=== PATIENT | male | born 1960 | race Caucasian/White ===

== ENCOUNTER 2017-07-26 16:44 | Emergency (ER) | payer MEDICAID ==
--- NOTE | 2017-07-26 18:44 | ED Physician Documentation ---
PD HPI BACK INJURY - Stated complaint Stated Complaint: SOA/ABD PX - History obtained from History obtained from: Patient - History of Present Illness Location: Right Type of injury: Other (just had a sneeze and felt onset of pain right lateral ribs. Hurting sharply. Not improved with Aleve. Had similar a few months ago on left side. Has had some upper thoracic pain recently too. Feeling that he is having pains diffusely the past 5-6 months. He thought it was just "getting old ".). No: Fall, Twist Where injury occurred: Home Timing - onset: How many days ago (current right ribs pain for few days, but has had diffuse pains for several months.) Timing - duration: Days Timing - details: Abrupt onset, Still present Quality: Pain Worsened by: Moving, Palpating, Other (deep breathing.) Associated symptoms: No: Fever, Weakness, Numbness Similar symptoms before: No diagnosis (has had some varied ribs pains in the recent past, thought he had just "thrown rib out of place".) Recently seen: Not recently seen (has not been to a medical provider for about 10 years.) Review of Systems Constitutional: denies: Fever, Chills Nose: denies: Rhinorrhea / runny nose, Congestion Throat: denies: Sore throat Cardiac: denies: Palpitations Respiratory: denies: Dyspnea, Cough, Wheezing GI: denies: Abdominal Pain, Nausea, Vomiting, Diarrhea, Bloody / black stool Skin: denies: Rash, Lesions Musculoskeletal: reports: Back pain (chronic low back post back surger about 10 years ago and has been on disability since.), Extremity pain Neurologic: reports: Generalized weakness (for several months). denies: Focal weakness, Numbness Endocrine: denies: Weight loss, Easy bruising / bleeding Immunocompromised: denies: Immunocompromised PD PAST MEDICAL HISTORY - Past Medical History Cardiovascular: None Respiratory: None Neuro: None Endocrine/Autoimmune: None GI: None Musculoskeletal: Chronic back pain Derm: None - Present Medications Home Medications: Ambulatory Orders Medication Instructions Recorded Confirmed Dexamethasone [Decadron] 4 mg PO DAILY #5 tablet 07/26/17 Oxycodone HCl/Acetaminophen 1 each PO Q6H PRN #20 tablet 07/26/17 [Percocet 5-325 mg Tablet] - Allergies Allergies/Adverse Reactions: Allergies Allergy/AdvReac Type Severity Reaction Status Date / Time codeine Allergy Mild Itching Verified 07/26/17 16:56 PD ED PE NORMAL - Vitals Vital signs reviewed: Yes - General General: Alert and oriented X 3, Well developed/nourished, Other (hurts with movement and deep breathing, pain right chest laterally. ) - HEENT HEENT: Atraumatic - Neck Neck: Supple, no meningeal sign, No adenopathy - Cardiac Cardiac: RRR, No murmur - Respiratory Respiratory: Clear bilaterally, Other (chestwall tender lateral right mid to lower ribs without crepitance. ) - Abdomen Abdomen: Soft, Non tender - Back Back: No CVA TTP, No spinal TTP - Derm Derm: Normal color, Warm and dry - Extremities Extremities: No deformity, No tenderness to palpate, Normal ROM s pain - Neuro Neuro: Alert and oriented X 3, No motor deficit, Normal speech Eye Opening: Spontaneous Motor: Obeys Commands Verbal: Oriented GCS Score: 15 - Psych Psych: Normal mood, Normal affect Results - Vitals Vitals: Vital Signs - 24 hr 07/26/17 07/26/17 16:48 21:10 Temperature 36.5 C 36.8 C Heart Rate 122 H 84 Respiratory 20 12 Rate Blood Pressure 168/85 H 147/90 H O2 Saturation 99 93 Oxygen O2 Source Room air - Labs Labs: Laboratory Tests 07/26/17 07/26/17 07/26/17 19:25 19:25 19:25 WBC 6.4 RBC 2.32 L Hgb 8.4 L Hct 23.7 L MCV 102.0 H MCH 36.2 H MCHC 35.5 RDW 14.3 Plt Count 177 MPV 7.1 L Neut # 4.1 Lymph # 1.6 [place] # 0.7 Eos # 0.1 Baso # 0.0 Absolute Nucleated RBC 0.00 Nucleated RBC % 0.0 ESR 11 Sodium 128 L Potassium 3.6 Chloride 100 L Carbon Dioxide 27 Anion Gap 1.0 L BUN 25 H Creatinine 1.4 H Estimated GFR (MDRD) 53 L Glucose 108 H Calcium 11.9 H Total Bilirubin 0.6 AST 25 ALT 16 Alkaline Phosphatase 69 Total Creatine Kinase 295 H C-Reactive Protein < 1.0 Total Protein 14.3 H Albumin 2.8 L Globulin 11.5 H Albumin/Globulin Ratio 0.2 L Lipase 27 - Rads (name of study) chest xray Radiology: Prelim report reviewed (no acute process seen. nodular density over left 8th rib.) chest CT Radiology: Prelim report reviewed, Discussed with rads (multiple lytic lesions ribs and spine, with pathologic fractures of several ribs acutely right side and healing old ones. Prior T3 and T8 compression fractures. Lungs and top of liver are normal. Most c/w multiple myeloma. 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 ) Departure - Departure Disposition: Home, Self Care Clinical Impression: Pathologic rib fracture Qualifiers: Encounter type: initial encounter Qualified Code(s): M84.48XA - Pathological fracture, other site, initial encounter for fracture Multiple myeloma Qualifiers: Multiple myeloma remission status: not in remission Qualified Code(s): C90.00 - Multiple myeloma not having achieved remission Chest pain Qualifiers: Chest pain type: intercostal pain Qualified Code(s): R07.82 - Intercostal pain Condition: Stable Record reviewed to determine appropriate education?: Yes Instructions: ED Fx Rib Follow-Up: Ntaalia Moore MD [Physician No Access] - Prescriptions: Dexamethasone [Decadron] 4 mg PO DAILY #5 tablet Oxycodone HCl/Acetaminophen [Percocet 5-325 mg Tablet] 1 each PO Q6H PRN #20 tablet PRN Reason: Pain Comments: You have multiple lytic lesions in the ribs and spine along with elevated protein and calcium level in your blood that all are highly suggestive of multiple myeloma. There is a blood test out which is a send out there will be confirmatory but it sounds pretty darn likely. Call the oncology office and tell them you want an appointment up in [place] and it can be with any of the oncologists that come up this way. They likely will give an appointment for next week. Meanwhile he can use Decadron steroid anti-inflammatory daily to reduce some of the inflammation. Also ibuprofen or naproxen or Tylenol. Add oxycodone if needed for worse pain. Activity as tolerated based on comfort. Discharge Date/Time: 07/26/17 21:54
--- NOTE | 2017-07-26 19:00 | XRAY Preliminary Report ---
Exam: XR CHEST 2 VIEW X-RAY IMPRESSION: 1. Findings suggestive of COPD with diffuse interstitial prominence, likely related to the former. Di fferential considerations would also include acute infectious/inflammatory pneumonitis as well as bor derline CHF/volume overload. 2. A 13 mm nodular opacity over the left midlung may be artifactual due to superimposed tissues. Shetty aristides comparison to prior imaging of the chest would be useful if available otherwise consider nonemerg ent outpatient CT chest for further evaluation. [facility] SITE ID: [id number]
[2017-07-26] MEDS ORDERED: KETOROLAC 60 MG/2 ML VIAL IM STA (19:08)
[2017-07-26] MEDS ORDERED: HYDROcod/ACETAM 5/325 MG TABLET PO STA (19:09)
[2017-07-26] MEDS ORDERED: METHOCARBAMOL 500 MG TABLET PO STA (19:09)
[2017-07-26] MEDS ORDERED: DEXAMETHASONE 10 MG/ML VIAL PO STA (19:09)
--- NOTE | 2017-07-26 19:09 | XRAY Report ---
EXAM: CHEST RADIOGRAPHY EXAM DATE: 07/26/2017 06:40 PM. CLINICAL HISTORY: Feels shortness of breath. Status post back injury in March. COMPARISON: None. TECHNIQUE: 2 views. FINDINGS: Lungs/Pleura: Lungs are mildly hyperinflated with flattening of diaphragm and increased retrosternal clear space. There is a nodular opacity projecting over the posterior eighth rib on the left measurin g 13 mm, though this may be artifactual due to superimposition of structures. No pleural effusion. No pneumothorax. There is mild diffuse interstitial prominence. Mediastinum: Heart and mediastinal contours are unremarkable. Other: None. IMPRESSION: 1. Findings suggestive of COPD with diffuse interstitial prominence, likely related to the former. Di fferential considerations would also include acute infectious/inflammatory pneumonitis as well as bor derline CHF/volume overload. 2. A 13 mm nodular opacity over the left midlung may be artifactual due to superimposed tissues. Shetty aristides, comparison to prior imaging of the chest would be useful if available. Otherwise, consider nonem ergent outpatient CT chest for further evaluation. [facility] Referring Provider Line: [phone] SITE ID: [id number]
[2017-07-26 19:43] LABS: BASOPHILS % (AUTO) 0.6 %; EOSINOPHILS # (AUTO) 0.1 10^3/uL (0.0-0.7); EOSINOPHILS % (AUTO) 0.9 %; HGB - HEMOGLOBIN 8.4 g/dL (14.0-18.0); LYMPHOCYTES # (AUTO) 1.6 10^3/uL (1.5-3.5); LYMPHOCYTES % (AUTO) 24.7 %; MEAN CORPUSCULAR HEMOGLOBIN 36.2 pg (27.0-31.0); MEAN CORPUSCULAR HGB CONC 35.5 g/dL (32.0-36.0); MEAN PLATELET VOLUME 7.1 fL (7.4-11.4); MONOCYTES # (AUTO) 0.7 10^3/uL (0.0-1.0); MONOCYTES % (AUTO) 10.3 %; NEUTROPHILS # (AUTO) 4.1 10^3/uL (1.5-6.6); NEUTROPHILS % (AUTO) 63.5 %; PLT - PLATELET COUNT 177 10^3/uL (130-450); RED BLOOD COUNT 2.32 10^6/uL (4.70-6.10); RED CELL DISTRIBUTION WIDTH 14.3 % (12.0-15.0); WHITE BLOOD COUNT 6.4 x10^3/uL (4.8-10.8)
--- NOTE | 2017-07-26 20:14 | CT Report ---
EXAM: CT CHEST EXAM DATE: 07/26/2017 07:37 PM. CLINICAL HISTORY: Ribs and spine pain; no noted injury. Severe upper right chest pain after rolling over in bed. Previously, intermittent rib pain in multiple locations. 13 mm nodular opacity projectin g over the left midlung on chest radiograph. COMPARISONS: Radiograph today. TECHNIQUE: Routine helical CT imaging was performed through the chest. IV contrast: None. Reconstruct ions: Coronal and sagittal. In accordance with CT protocol optimization, one or more of the following dose reduction techniques w ere utilized for this exam: automated exposure control, adjustment of mA and/or KV based on patient s ize, or use of iterative reconstructive technique. FINDINGS: Lungs/Pleura: Lungs are normal in volume and generally clear. There is minimal wispy bibasilar atelec tasis. No discrete nodules. No emphysema or generalized interstitial abnormality. Central airways nor mal. No pleural fluid or pneumothorax. Mediastinum: Heart size is normal. There is calcification in the left anterior descending coronary ar sharon. Central pulmonary arteries are not enlarged. Thoracic aorta is unremarkable. Lower thyroid glan d and esophagus are unremarkable. No lymphadenopathy. Bones: There is a healed fracture of the anterior left fifth rib which corresponds to the opacity on chest radiograph. There is also a healed fracture of the anterior left fourth rib near the costochond ral junction. There is an incompletely healed fracture of the posterior left ninth rib. There is a he aled or healing fracture the anterior left ninth rib near the costochondral junction. There is a heal ed fracture of the posterolateral right fourth rib. There is a healed or healing fracture of the post erior right eighth rib. There are acute-appearing fractures of the anterior right eighth, ninth, and 10th ribs. Several of these fracture sites appears slightly expansile with central lucency. There are also some subtle areas of slight cortical thinning and hyperlucency in the medullary space involving other ribs. In addition, there are innumerable lytic lesions throughout the visualized spine most co nspicuously at T3 which shows moderate vertebral compression deformity and at T8 which shows partial anterior cortical disruption and mild compression deformity. Visualized Abdomen: Unremarkable. Other: Shotty bilateral axillary lymph nodes, nonspecific. No retroclavicular lymphadenopathy. IMPRESSION: 1. Innumerable lytic bone lesions suggesting multiple myeloma or metastatic disease. There are multip le bilateral rib fractures many of which are healed or partially healed, but anterior right eighth th rough 10th rib fractures may be acute or subacute and may account for pain. Correlate with SPEP. CT-g uided transpedicular biopsy could be directed at dominant lytic lesions at T3 or T8 as clinically ind icated. 2. No focal lung lesions are identified. 3. Nonspecific shotty bilateral axillary lymph nodes. No kimberly lymphadenopathy or primary soft tissue mass is identified. 4. Calcification in the left anterior descending coronary artery. [facility] The above findings were discussed with Bernardo Pacheco by Dr. Dagoberto Harris at 20:13 hrs on 07/26/17. Referring Provider Line: [phone] SITE ID: [id number]
[2017-07-26 20:52] LABS: ALBUMIN 2.8 g/dL (3.2-5.5); ALKALINE PHOSPHATASE 69 IU/L (42-121); ALT ALANINE AMINOTRANSFERASE 16 IU/L (10-60); AST ASPARTATE AMINOTRANSFERASE 25 IU/L (10-42); BILIRUBIN,TOTAL 0.6 mg/dL (0.2-1.0); BUN - BLOOD UREA NITROGEN 25 mg/dL (6-20); CALCIUM 11.9 mg/dL (8.5-10.3); CARBON DIOXIDE - CO2 27 mmol/L (21-32); CHLORIDE 100 mmol/L (101-111); CK- CREATINE KINASE 295 IU/L (22-269); CREATININE 1.4 mg/dL (0.6-1.2); GFR - MDRD 53 (>89); GLUCOSE 108 mg/dL (70-100); LIPASE 27 U/L (22-51); SODIUM 128 mmol/L (135-145)
[2017-07-26 20:56] LABS: ALBUMIN/GLOBULIN RATIO 0.2 (1.0-2.2); TOTAL PROTEIN 14.3 g/dL (6.7-8.2)
[2017-07-26 21:00] LABS: CRP - C-REACTIVE PROTEIN < 1.0 mg/dL (0-1.0)
[2017-07-26 21:11] VITALS: BP 147/90
[2017-07-26] MEDS ORDERED: oxyCODONE/ACET 5/325 Prepack 4 PO STA (21:33)
[2017-08-01 21:41] LABS: ABNORMAL PROTEIN BAND 1 7.4 g/dL (NONE DETECTED); ALBUMIN 3.8 g/dL (3.8-4.8); ALPHA 1 GLOBULIN 0.4 g/dL (0.2-0.3); ALPHA 2 GLOBULIN 0.8 g/dL (0.5-0.9); BETA 1 GLOBULIN 0.4 g/dL (0.4-0.6); BETA 2 GLOBULIN 0.2 g/dL (0.2-0.5); GAMMA GLOBULIN 7.8 g/dL (0.8-1.7)
== END 2017-07-26 21:54 | disposition home or self-care (01) ==
LOC: ED 16:44
DX: C90.00 Multiple myeloma not having achieved remission (principal); M84.48XA Pathological fracture, other site, initial encounter for fracture; M54.5 Low back pain; G89.29 Other chronic pain
CPT/HCPCS: 36415; 71046; 71250; 80053; 82550; 83690; 84155; 84165; 85025; 85651; 86140; 96372; 99283; 99284; A9270

== ENCOUNTER 2017-09-11 06:28 | Outpatient (CLI) | payer MEDICAID | END 2017-09-11 06:29 | disposition E | LOC: EMS 06:28 | PROVIDERS: ATTEND Surgery | CPT/HCPCS: A0429; A0999 ==